=== PATIENT | female | born 1990 | race Caucasian/White ===

== ENCOUNTER 2017-11-04 11:01 | Observation (INO) | payer OTHER ==
[~2017-11-04] VITALS: Ht 170.2 cm; Wt 50.8 kg
[2017-11-04 12:26] LABS: BASOPHILS ABSOLUTE AUTO 0.04 K/mm3 (0.00-0.23); BASOPHILS PERCENT AUTO 0 % (0-2); EOSINOPHILS ABSOLUTE AUTO 0.06 K/mm3 (0.00-0.68); EOSINOPHILS PERCENT AUTO 0 % (0-6); Hematocrit 45.3 % (33.0-51.0); Hemoglobin 15.6 g/dL (11.5-16.0); IMMATURE GRAN ABSOLUTE AUTO 0.05 K/mm3 (0.00-0.10); IMMATURE GRAN PERCENT AUTO 0 % (0-1); LYMPHOCYTES ABSOLUTE AUTO 1.73 K/mm3 (0.84-5.20); LYMPHOCYTES PERCENT AUTO 11 % (21-46); MONOCYTES ABSOLUTE AUTO 0.89 K/mm3 (0.16-1.47); MONOCYTES PERCENT AUTO 6 % (4-13); Mean Corpuscular HGB 31.4 pg (26.0-34.0); Mean Corpuscular HGB Conc 34.4 g/dL (31.5-36.5); Mean Corpuscular Volume 91 fL (80-100); Mean Platelet Volume 9.1 fL (9.1-12.4); NEUTROPHILS ABSOLUTE AUTO 13.12 K/mm3 (1.96-9.15); NEUTROPHILS PERCENT AUTO 83 % (41-73); Platelet Count 277 K/mm3 (150-400); RDW Coefficient Variation 12.6 % (11.7-14.2); RDW Standard Deviation 42.1 fL (35.1-46.3); Red Blood Cell Count 4.97 M/mm3 (3.80-5.20); White Blood Cell Count 15.89 K/mm3 (4.00-11.30)
[2017-11-04 13:05] LABS: Alanine Aminotransfer (ALT/SGP 21 U/L (12-78); Albumin, Blood 3.7 g/dL (3.4-5.0); Albumin/Globulin Ratio 0.8 (0.8-1.8); Alk Phos 86 U/L (50-136); Anion Gap 9 mmol/L (6-16); Aspartate Aminotrans (AST/SGOT 17 U/L (12-37); Bilirubin, Total 0.8 mg/dL (0.1-1.0); Blood Urea Nitrogen 21 mg/dL (8-24); Bun/Creatinine Ratio 28.8 (12.0-20.0); CO2, Blood 24 mmol/L (21-32); Chloride, Blood 104 mmol/L (98-108); Creatinine, Blood 0.73 mg/dL (0.40-1.00); Ethanol (Alcohol), Blood, Med <3 mg/dL; Globulin, Blood 4.5 g/dL (2.2-4.0); Glomerular Filtration Rate >60 (60-); Glucose, Blood 160 mg/dL (70-99); Potassium, Blood 3.8 mmol/L (3.5-5.5); Salicylate <1.7 mg/dL (2.8-20.0); Sodium, Blood 137 mmol/L (136-145); Total Protein, Blood 8.2 g/dL (6.4-8.2)
[2017-11-04 13:09] LABS: Thyroid Stimulating Hormone 0.436 uIU/mL (0.360-4.800)
[2017-11-04 13:35] LABS: Acetaminophen, Random <2.0 ug/mL (10.0-30.0)
[2017-11-04 16:10] LABS: Source, Urine Clean Catch
[2017-11-04 16:34] LABS: Appearance, Urine Clear (Clear); Bilirubin, Urine Neg (Neg); Blood, Urine 4+ (Neg); Color, Urine Yellow (P-Yellow); Glucose Qualitative, Urine 2+ (Neg); Ketones, Urine 2+ (Neg); Leukocyte Esterase, Urine Neg (Neg); Nitrite, Urine Neg (Neg); Protein, Urine Neg (Neg); Urobilinogen, Urine 1+ (Normal)
[2017-11-04 17:03] LABS: U Amphetamine Screen DETECTED; U Barbituate Screen Not Detected; U Benzodiazapine Screen DETECTED; U Methamphetamine Screen DETECTED
[2017-11-04 17:04] LABS: U Buprenorphine Screen Not Detected; U Cannabinoids Screen Not Detected; U Cocaine Screen Not Detected; U Methadone Screen Not Detected; U Opiates Screen Not Detected; U Oxycodone Screen Not Detected; U Phencyclidine Screen Not Detected; U Propoxyphene Screen Not Detected
[2017-11-04 17:16] LABS: Bacteria Mod /hpf; Red Blood Cells, Urine 0-2 /hpf (0-2); Squamous Epithelial Cells Few /hpf (Few); White Blood Cells, Urine 0-2 /hpf (0-5)
== END 2017-11-06 11:20 | disposition home or self-care (01) ==
LOC: ER 11:01 → EOR 11:02
PROVIDERS: Emergency Medicine
DX: R45.851 Suicidal ideations (principal); F32.9 Major depressive disorder, single episode, unspecified; F15.10 Other stimulant abuse, uncomplicated
CPT/HCPCS: 80053; 81001; 81025; 84436; 84443; 85025; 99285; G0378; G0480; Q0163

== ENCOUNTER 2019-06-30 12:28 | Emergency (ER) | payer OTHER ==
[~2019-06-30] VITALS: Ht 170.2 cm; Wt 55.8 kg
[2019-06-30 12:46] LABS: BASOPHILS ABSOLUTE AUTO 0.06 K/mm3 (0.00-0.23); BASOPHILS PERCENT AUTO 0 % (0-2); EOSINOPHILS ABSOLUTE AUTO 0.02 K/mm3 (0.00-0.68); EOSINOPHILS PERCENT AUTO 0 % (0-6); Hematocrit 49.6 % (33.0-51.0); IMMATURE GRAN ABSOLUTE AUTO 0.04 K/mm3 (0.00-0.10); IMMATURE GRAN PERCENT AUTO 0 % (0-1); LYMPHOCYTES PERCENT AUTO 18 % (21-46); MONOCYTES ABSOLUTE AUTO 1.13 K/mm3 (0.16-1.47); MONOCYTES PERCENT AUTO 8 % (4-13); Mean Corpuscular HGB 31.4 pg (26.0-34.0); Mean Corpuscular HGB Conc 34.3 g/dL (31.5-36.5); Mean Corpuscular Volume 92 fL (80-100); Mean Platelet Volume 9.2 fL (9.1-12.4); NEUTROPHILS ABSOLUTE AUTO 10.43 K/mm3 (1.96-9.15); NEUTROPHILS PERCENT AUTO 74 % (41-73); Platelet Count 252 K/mm3 (150-400); RDW Coefficient Variation 11.9 % (11.7-14.2); RDW Standard Deviation 40.1 fL (35.1-46.3); Red Blood Cell Count 5.41 M/mm3 (3.80-5.20); White Blood Cell Count 14.18 K/mm3 (4.00-11.30)
[2019-06-30] MEDS ORDERED: LEVE500 PO (12:48)
[2019-06-30 13:06] LABS: Alanine Aminotransfer (ALT/SGP 20 U/L (12-78); Albumin, Blood 4.8 g/dL (3.4-5.0); Albumin/Globulin Ratio 1.3 (0.8-1.8); Alk Phos 75 U/L (50-136); Anion Gap 18 mmol/L (6-16); Aspartate Aminotrans (AST/SGOT 18 U/L (12-37); Bilirubin, Total 0.8 mg/dL (0.1-1.0); Blood Urea Nitrogen 7 mg/dL (8-24); Bun/Creatinine Ratio 9.2 (12.0-20.0); CO2, Blood 13 mmol/L (21-32); Calcium, Blood 9.2 mg/dL (8.5-10.1); Chloride, Blood 107 mmol/L (98-108); Creatinine, Blood 0.77 mg/dL (0.40-1.00); Globulin, Blood 3.8 g/dL (2.2-4.0); Glomerular Filtration Rate >60 (60-); Glucose, Blood 73 mg/dL (70-99); Potassium, Blood 3.6 mmol/L (3.5-5.5); Sodium, Blood 138 mmol/L (136-145); Total Protein, Blood 8.6 g/dL (6.4-8.2)
[2019-06-30 14:01] LABS: Source, Urine Clean Catch
[2019-06-30 14:04] LABS: Bilirubin, Urine Neg (Neg); Blood, Urine 2+ (Neg); Glucose Qualitative, Urine Neg (Neg); Ketones, Urine 3+ (Neg); Leukocyte Esterase, Urine Neg (Neg); Nitrite, Urine Neg (Neg); Protein, Urine Neg (Neg); Urobilinogen, Urine NORM (Normal)
[2019-06-30 14:05] LABS: Appearance, Urine Clear (Clear); Color, Urine Yellow (P-Yellow)
[2019-06-30 14:10] LABS: Bacteria Few /hpf; Squamous Epithelial Cells Rare /hpf (Few); White Blood Cells, Urine 0-2 /hpf (0-5)
== END 2019-06-30 14:57 | disposition home or self-care (01) ==
LOC: ER 12:28
PROVIDERS: Emergency Medicine
DX: R56.9 Unspecified convulsions (principal); F15.10 Other stimulant abuse, uncomplicated; F17.210 Nicotine dependence, cigarettes, uncomplicated; Z88.5 Allergy status to narcotic agent
CPT/HCPCS: 80053; 81001; 81025; 82947; 85025; 93005; 93010; 96360; 99284-25; J7120

== ENCOUNTER 2019-12-10 12:52 | Emergency (ER) | payer OTHER ==
[~2019-12-10] VITALS: Ht 170.2 cm; Wt 52.2 kg
[~2019-12-10 12:52] MED LIST: LEVE500 PO
[2019-12-10 13:50] LABS: BASOPHILS ABSOLUTE AUTO 0.07 K/mm3 (0.00-0.23); BASOPHILS PERCENT AUTO 1 % (0-2); EOSINOPHILS ABSOLUTE AUTO 0.02 K/mm3 (0.00-0.68); EOSINOPHILS PERCENT AUTO 0 % (0-6); Hematocrit 46.7 % (33.0-51.0); Hemoglobin 16.6 g/dL (11.5-16.0); IMMATURE GRAN ABSOLUTE AUTO 0.03 K/mm3 (0.00-0.10); IMMATURE GRAN PERCENT AUTO 0 % (0-1); LYMPHOCYTES ABSOLUTE AUTO 2.46 K/mm3 (0.84-5.20); LYMPHOCYTES PERCENT AUTO 24 % (21-46); MONOCYTES ABSOLUTE AUTO 0.87 K/mm3 (0.16-1.47); MONOCYTES PERCENT AUTO 8 % (4-13); Mean Corpuscular HGB 31.3 pg (26.0-34.0); Mean Corpuscular HGB Conc 35.5 g/dL (31.5-36.5); Mean Corpuscular Volume 88 fL (80-100); Mean Platelet Volume 9.3 fL (9.1-12.4); NEUTROPHILS ABSOLUTE AUTO 6.96 K/mm3 (1.96-9.15); NEUTROPHILS PERCENT AUTO 67 % (41-73); Platelet Count 275 K/mm3 (150-400); RDW Coefficient Variation 11.9 % (11.7-14.2); RDW Standard Deviation 38.1 fL (35.1-46.3); White Blood Cell Count 10.41 K/mm3 (4.00-11.30)
[2019-12-10 14:13] LABS: Alanine Aminotransfer (ALT/SGP 23 U/L (12-78); Albumin, Blood 4.3 g/dL (3.4-5.0); Albumin/Globulin Ratio 1.1 (0.8-1.8); Alk Phos 74 U/L (50-136); Anion Gap 10 mmol/L (6-16); Aspartate Aminotrans (AST/SGOT 15 U/L (12-37); Bilirubin, Total 0.7 mg/dL (0.1-1.0); Blood Urea Nitrogen 8 mg/dL (8-24); Bun/Creatinine Ratio 12.1 (12.0-20.0); CO2, Blood 18 mmol/L (21-32); Calcium, Blood 9.2 mg/dL (8.5-10.1); Chloride, Blood 109 mmol/L (98-108); Creatinine, Blood 0.66 mg/dL (0.40-1.00); Globulin, Blood 3.9 g/dL (2.2-4.0); Glomerular Filtration Rate >60 (60-); Glucose, Blood 83 mg/dL (70-99); Potassium, Blood 3.7 mmol/L (3.5-5.5); Sodium, Blood 137 mmol/L (136-145); Total Protein, Blood 8.2 g/dL (6.4-8.2)
[2019-12-10 14:20] LABS: Troponin I <0.015 ng/mL (0.000-0.040)
[2019-12-10] MEDS ORDERED: LEVE500 PO (15:28)
== END 2019-12-10 15:53 | disposition home or self-care (01) ==
LOC: ER 12:52
PROVIDERS: Emergency Medicine; Physician Assistant
DX: R56.9 Unspecified convulsions (principal); E86.0 Dehydration; Z91.14 Patient's other noncompliance with medication regimen; F17.200 Nicotine dependence, unspecified, uncomplicated; Z88.5 Allergy status to narcotic agent; Z88.8 Allergy status to other drugs, medicaments and biological substances; Z79.899 Other long term (current) drug therapy
CPT/HCPCS: 80053; 83690; 84443; 84484; 84703; 85025; 93005; 93010; 96361; 96365; 96375; 99284-25; J1953; J2405; J7030

== ENCOUNTER 2020-12-30 20:25 | Emergency (ER) | payer OTHER ==
[~2020-12-30] VITALS: Ht 170.2 cm; Wt 50.8 kg
[2020-12-30 20:51] LABS: BASOPHILS ABSOLUTE AUTO 0.07 K/mm3 (0.00-0.23); BASOPHILS PERCENT AUTO 1 % (0-2); EOSINOPHILS ABSOLUTE AUTO 0.32 K/mm3 (0.00-0.68); EOSINOPHILS PERCENT AUTO 3 % (0-6); Hematocrit 45.7 % (33.0-51.0); Hemoglobin 15.9 g/dL (11.5-16.0); IMMATURE GRAN ABSOLUTE AUTO 0.05 K/mm3 (0.00-0.10); IMMATURE GRAN PERCENT AUTO 0 % (0-1); LYMPHOCYTES ABSOLUTE AUTO 3.02 K/mm3 (0.84-5.20); LYMPHOCYTES PERCENT AUTO 27 % (21-46); MONOCYTES ABSOLUTE AUTO 0.88 K/mm3 (0.16-1.47); MONOCYTES PERCENT AUTO 8 % (4-13); Mean Corpuscular HGB 31.2 pg (26.0-34.0); Mean Corpuscular HGB Conc 34.8 g/dL (31.5-36.5); Mean Corpuscular Volume 90 fL (80-100); Mean Platelet Volume 8.8 fL (9.1-12.4); NEUTROPHILS ABSOLUTE AUTO 6.83 K/mm3 (1.96-9.15); NEUTROPHILS PERCENT AUTO 61 % (41-73); Platelet Count 263 K/mm3 (150-400); RDW Coefficient Variation 11.6 % (11.7-14.2); RDW Standard Deviation 38.5 fL (35.1-46.3); Red Blood Cell Count 5.09 M/mm3 (3.80-5.20); White Blood Cell Count 11.17 K/mm3 (4.00-11.30)
[2020-12-30 21:09] LABS: Alanine Aminotransfer (ALT/SGP 28 U/L (12-78); Albumin, Blood 3.4 g/dL (3.4-5.0); Albumin/Globulin Ratio 0.7 (0.8-1.8); Alk Phos 83 U/L (50-136); Anion Gap 5 mmol/L (6-16); Aspartate Aminotrans (AST/SGOT 15 U/L (12-37); Bilirubin, Total 0.4 mg/dL (0.1-1.0); Blood Urea Nitrogen 11 mg/dL (8-24); Bun/Creatinine Ratio 16.1 (12.0-20.0); CO2, Blood 27 mmol/L (21-32); Calcium, Blood 8.8 mg/dL (8.5-10.1); Chloride, Blood 106 mmol/L (98-108); Creatinine, Blood 0.68 mg/dL (0.40-1.00); Globulin, Blood 4.7 g/dL (2.2-4.0); Glomerular Filtration Rate >60 (60-); Glucose, Blood 93 mg/dL (70-99); Sodium, Blood 138 mmol/L (136-145); Total Protein, Blood 8.1 g/dL (6.4-8.2)
[2020-12-30 22:11] LABS: Source, Urine Clean Catch
[2020-12-30 22:13] LABS: Bilirubin, Urine Neg (Neg); Blood, Urine 3+ (Neg); Glucose Qualitative, Urine Neg (Neg); Ketones, Urine Neg (Neg); Leukocyte Esterase, Urine 3+ (Neg); Nitrite, Urine Neg (Neg); Protein, Urine 1+ (Neg); Urobilinogen, Urine NORM (Normal)
[2020-12-30 22:24] LABS: Appearance, Urine Clear (Clear); Bacteria Many /hpf; Color, Urine Yellow (P-Yellow); Squamous Epithelial Cells Few /hpf (Few); White Blood Cells, Urine 25-50 /hpf (0-5)
[2020-12-30] MEDS ORDERED: ONDA4ODT MM (23:56)
[2020-12-30] MEDS ORDERED: CEPH500 PO (23:56)
[2020-12-31] MEDS ORDERED: Pyridium200 MG PO
== END 2020-12-31 00:57 | disposition home or self-care (01) ==
LOC: ER 20:25
PROVIDERS: Emergency Medicine
DX: N12 Tubulo-interstitial nephritis, not specified as acute or chronic (principal); F17.210 Nicotine dependence, cigarettes, uncomplicated; Z87.19 Personal history of other diseases of the digestive system; Z88.5 Allergy status to narcotic agent; Z79.899 Other long term (current) drug therapy
CPT/HCPCS: 36415; 80053; 81001; 81025; 82272; 84703; 85025; 87086; 87147; 93005; 93010; 96374; 99284-25; A9270; J1885; J7120

== ENCOUNTER 2021-01-28 07:41 | Inpatient (IN) | payer OTHER ==
[~2021-01-28] VITALS: Ht 162.6 cm; Wt 63.1 kg
[~2021-01-28 07:41] MED LIST changes: +CEPH500 PO; +ONDA4ODT MM; +Pyridium200 MG PO
[2021-01-28 08:24] LABS: PCO2 Arterial 38.6 mmHg (35-45); PO2 Arterial 79.6 mmHg (80-100); pH Blood Arterial 7.37 (7.35-7.45)
[2021-01-28 08:35] LABS: BASOPHILS ABSOLUTE AUTO 0.08 K/mm3 (0.00-0.23); BASOPHILS PERCENT AUTO 1 % (0-2); EOSINOPHILS ABSOLUTE AUTO 0.54 K/mm3 (0.00-0.68); EOSINOPHILS PERCENT AUTO 4 % (0-6); Hematocrit 44.6 % (33.0-51.0); Hemoglobin 14.7 g/dL (11.5-16.0); IMMATURE GRAN ABSOLUTE AUTO 0.05 K/mm3 (0.00-0.10); IMMATURE GRAN PERCENT AUTO 0 % (0-1); LYMPHOCYTES ABSOLUTE AUTO 4.22 K/mm3 (0.84-5.20); LYMPHOCYTES PERCENT AUTO 31 % (21-46); MONOCYTES ABSOLUTE AUTO 1.06 K/mm3 (0.16-1.47); MONOCYTES PERCENT AUTO 8 % (4-13); Mean Corpuscular HGB 30.2 pg (26.0-34.0); Mean Corpuscular Volume 92 fL (80-100); Mean Platelet Volume 9.4 fL (9.1-12.4); NEUTROPHILS ABSOLUTE AUTO 7.72 K/mm3 (1.96-9.15); NEUTROPHILS PERCENT AUTO 56 % (41-73); Platelet Count 205 K/mm3 (150-400); RDW Coefficient Variation 12.1 % (11.7-14.2); RDW Standard Deviation 41.1 fL (35.1-46.3); Red Blood Cell Count 4.86 M/mm3 (3.80-5.20); White Blood Cell Count 13.67 K/mm3 (4.00-11.30)
[2021-01-28 08:38] LABS: Alanine Aminotransfer (ALT/SGP 44 U/L (12-78); Albumin, Blood 3.4 g/dL (3.4-5.0); Albumin/Globulin Ratio 0.8 (0.8-1.8); Alk Phos 81 U/L (50-136); Anion Gap 5 mmol/L (6-16); Aspartate Aminotrans (AST/SGOT 25 U/L (12-37); Bilirubin, Total 0.3 mg/dL (0.1-1.0); Blood Urea Nitrogen 7 mg/dL (8-24); Bun/Creatinine Ratio 10.5 (12.0-20.0); CO2, Blood 26 mmol/L (21-32); Chloride, Blood 107 mmol/L (98-108); Creatinine, Blood 0.67 mg/dL (0.40-1.00); Globulin, Blood 4.2 g/dL (2.2-4.0); Glomerular Filtration Rate >60 (60-); Glucose, Blood 115 mg/dL (70-99); Potassium, Blood 3.8 mmol/L (3.5-5.5); Sodium, Blood 138 mmol/L (136-145); Total Protein, Blood 7.6 g/dL (6.4-8.2); Troponin I <0.015 ng/mL (0.000-0.040)
[2021-01-28 12:02] LABS: Influenza A, PCR NEGATIVE (NEGATIVE); Influenza B, PCR NEGATIVE (NEGATIVE); Resp Syncytial Virus, PCR NEGATIVE (NEGATIVE); SARS-Cov-2 (COVID-19) PCR, MMC NEGATIVE (NEGATIVE)
[2021-01-28] MEDS ORDERED: LEVE500 PO (12:15)
[2021-01-28 17:06] LABS: U Amphetamine Screen DETECTED; U Barbituate Screen Not Detected; U Benzodiazapine Screen Not Detected; U Buprenorphine Screen Not Detected; U Cannabinoids Screen Not Detected; U Cocaine Screen Not Detected; U Methadone Screen Not Detected; U Methamphetamine Screen DETECTED; U Opiates Screen DETECTED; U Oxycodone Screen Not Detected; U Phencyclidine Screen Not Detected; U Propoxyphene Screen Not Detected
--- NOTE | 2021-01-28 17:41 | NUR ---
SHIFT SUMMARY PT ARRIVED TO PCU THIS AFTERNOON. PT CAME WITH BIPAP AND ON 4L O2 VIA NC. PT HAS USED THE BIPAP NEEDED; SHE WILL REQUEST TO USE THE BIPAP WHEN SHE FEELS SOB OR SATURATION DROPS. VS STABLE OTHER THAN O2 REQUIREMENT. PT ABLE TO SBA TO THE BEDSIDE COMMODE. THIS AFTERNOON AT APPROXIMATELY 1635 THE PT HAD A SEIZURE LASTING APPROXIMATELY 30 SECONDS AND WAS GIVEN 1MG ATIVAN. WAS NOTIFIED, AND ORDERED MULTIPLE ADDITIONAL LABS AND MEDICATIONS. PT HAS BEEN RESTING IN BED SINCE.
[2021-01-28 18:02] LABS: Albumin, Blood 3.3 g/dL (3.4-5.0); Anion Gap 8 mmol/L (6-16); Blood Urea Nitrogen 6 mg/dL (8-24); Bun/Creatinine Ratio 10.7 (12.0-20.0); CO2, Blood 19 mmol/L (21-32); Calcium, Blood 8.1 mg/dL (8.5-10.1); Chloride, Blood 112 mmol/L (98-108); Creatinine, Blood 0.56 mg/dL (0.40-1.00); Glomerular Filtration Rate >60 (60-); Glucose, Blood 153 mg/dL (70-99); Magnesium, Blood 2.2 mg/dL (1.6-2.4); Potassium, Blood 4.4 mmol/L (3.5-5.5); Prolactin 4.7 ng/mL; Sodium, Blood 139 mmol/L (136-145)
--- NOTE | 2021-01-28 19:25 | NUR ---
ASSUMED CARE RECEIVED REPORT FROM JAQUELINE GIANG; PT LETHARGIC, BUT AROUSES W/ VERBAL; SEIZURE PADS IN PLACE; VSS; O2 SATS>93 ON 4L NC; RT IN ROOM TO ASSIST W/ BIPAP; BELONGINGS AND CALL LIGHT WITHIN REACH; BED IN LOWEST POSITION; BED ALARM ON FOR SAFETY.
[2021-01-29 04:39] LABS: BASOPHILS ABSOLUTE AUTO 0.03 K/mm3 (0.00-0.23); BASOPHILS PERCENT AUTO 0 % (0-2); EOSINOPHILS PERCENT AUTO 0 % (0-6); Hematocrit 38.1 % (33.0-51.0); Hemoglobin 12.6 g/dL (11.5-16.0); IMMATURE GRAN ABSOLUTE AUTO 0.12 K/mm3 (0.00-0.10); IMMATURE GRAN PERCENT AUTO 1 % (0-1); LYMPHOCYTES ABSOLUTE AUTO 1.99 K/mm3 (0.84-5.20); LYMPHOCYTES PERCENT AUTO 8 % (21-46); MONOCYTES ABSOLUTE AUTO 0.49 K/mm3 (0.16-1.47); MONOCYTES PERCENT AUTO 2 % (4-13); Mean Corpuscular HGB 30.1 pg (26.0-34.0); Mean Corpuscular HGB Conc 33.1 g/dL (31.5-36.5); Mean Corpuscular Volume 91 fL (80-100); Mean Platelet Volume 9.2 fL (9.1-12.4); NEUTROPHILS ABSOLUTE AUTO 21.28 K/mm3 (1.96-9.15); NEUTROPHILS PERCENT AUTO 89 % (41-73); Platelet Count 202 K/mm3 (150-400); RDW Coefficient Variation 12.2 % (11.7-14.2); RDW Standard Deviation 40.6 fL (35.1-46.3); Red Blood Cell Count 4.19 M/mm3 (3.80-5.20); White Blood Cell Count 23.91 K/mm3 (4.00-11.30)
[2021-01-29 05:01] LABS: Anion Gap 6 mmol/L (6-16); Blood Urea Nitrogen 11 mg/dL (8-24); Bun/Creatinine Ratio 18.7 (12.0-20.0); CO2, Blood 23 mmol/L (21-32); Calcium, Blood 7.9 mg/dL (8.5-10.1); Chloride, Blood 112 mmol/L (98-108); Creatinine, Blood 0.59 mg/dL (0.40-1.00); Glomerular Filtration Rate >60 (60-); Glucose, Blood 150 mg/dL (70-99); Potassium, Blood 3.8 mmol/L (3.5-5.5); Sodium, Blood 141 mmol/L (136-145)
--- NOTE | 2021-01-29 06:25 | NUR ---
SHIFT SUMMARY PT GOES BETWEEN ALERT AND LETHARGIC SPONTANEOUSLY; IMPULSIVE OUT OF BED AT TIMES, DOES NOT CALL FOR HELP W/ BATHROOM; VSS; DENIES CHEST PAIN; O2 SATS >93 ON 4L NC; WAS ABLE TO WEAR BIPAP >3HRS THIS SHIFT; NS GTT @ 125 CONTINUE; EDUCATION PROVIDED FOR SAFETY / UNIT PROTOCOL; SBA FOR BRP; CALL LIGHT IN REACH; BED IN LOWEST POSITION; WILL CONTINUE TO MONITOR CLOSELY UNTIL HAND OFF TO DAY SHIFT RN.
--- NOTE | 2021-01-29 17:23 | NUR ---
SHIFT SUMMARY PT HAS BEEN SLEEPING MOST OF THE DAY. PT REPORTS FEELING BETTER THIS AFTERNOON AND WAS ABLE TO HAVE A SHOWER. PT REMAINS ON O2, 5L AND BIPAP PRN. PT HAS COOPERATED IN HER CARE TODAY. VS STABLE AND PT REMAINS A SBA TO THE BATHROOM SHE IS STILL UNSTEADY ON HER FEET AND REQUIRES THE BED ALARM. PT STATED "IS THERE A WAY TO HAVE MORE SUBOXONE THIS EVENING? I'M STARTING TO FEEL THE WITHDRAWAL" SINCE THE PT HAD NOT PREVIOUSLY BEEN TAKING SUBOXONE SHE WAS OFFERED BUSPAR INSTEAD AND THE SUBOXONE WOULD CONTINUE IN THE MORNING. PT EXPRESSED CONCERN ABOUT THE BUSPAR GIVING HER SEIZURES; THE ORDER WAS DC'D AND ATIVAN WAS ORDERED IN PLACE TO HELP WITH ANXIETY AND DISCOMFORT DUE TO WITHDRAWAL WELL TO HELP WITH SEIZURES; PT AGREED TO THIS PLAN VERBALLY. PT IS RESTING IN BED HAVING DINNER AND WATCHING TV AT THIS TIME
[2021-01-30 04:21] LABS: BASOPHILS ABSOLUTE AUTO 0.03 K/mm3 (0.00-0.23); BASOPHILS PERCENT AUTO 0 % (0-2); EOSINOPHILS PERCENT AUTO 0 % (0-6); Hemoglobin 11.9 g/dL (11.5-16.0); IMMATURE GRAN ABSOLUTE AUTO 0.42 K/mm3 (0.00-0.10); IMMATURE GRAN PERCENT AUTO 2 % (0-1); LYMPHOCYTES ABSOLUTE AUTO 1.45 K/mm3 (0.84-5.20); LYMPHOCYTES PERCENT AUTO 6 % (21-46); MONOCYTES ABSOLUTE AUTO 0.72 K/mm3 (0.16-1.47); MONOCYTES PERCENT AUTO 3 % (4-13); Mean Corpuscular HGB 30.7 pg (26.0-34.0); Mean Corpuscular HGB Conc 33.1 g/dL (31.5-36.5); Mean Corpuscular Volume 93 fL (80-100); Mean Platelet Volume 9.7 fL (9.1-12.4); NEUTROPHILS PERCENT AUTO 90 % (41-73); Platelet Count 213 K/mm3 (150-400); RDW Coefficient Variation 12.5 % (11.7-14.2); RDW Standard Deviation 42.5 fL (35.1-46.3); Red Blood Cell Count 3.88 M/mm3 (3.80-5.20); White Blood Cell Count 26.22 K/mm3 (4.00-11.30)
[2021-01-30 04:34] LABS: Alanine Aminotransfer (ALT/SGP 44 U/L (12-78); Albumin, Blood 2.7 g/dL (3.4-5.0); Albumin/Globulin Ratio 0.8 (0.8-1.8); Alk Phos 58 U/L (50-136); Anion Gap 5 mmol/L (6-16); Aspartate Aminotrans (AST/SGOT 24 U/L (12-37); Bilirubin, Total 0.5 mg/dL (0.1-1.0); Blood Urea Nitrogen 14 mg/dL (8-24); Bun/Creatinine Ratio 25.8 (12.0-20.0); CO2, Blood 24 mmol/L (21-32); Calcium, Blood 7.8 mg/dL (8.5-10.1); Chloride, Blood 112 mmol/L (98-108); Creatinine, Blood 0.54 mg/dL (0.40-1.00); Globulin, Blood 3.4 g/dL (2.2-4.0); Glomerular Filtration Rate >60 (60-); Glucose, Blood 153 mg/dL (70-99); Phosphorus, Blood 2.3 mg/dL (2.5-4.9); Sodium, Blood 141 mmol/L (136-145); Total Protein, Blood 6.1 g/dL (6.4-8.2)
--- NOTE | 2021-01-30 06:26 | NUR ---
SHIFT SUMMARY PT A&O X 4; WITHDRAWN AND MAJORITY OF SHIFT; DENIES CHEST PAIN; VSS; SR TO SINUS TACH NOTED ON TELE; O2 SATS >93 ON 4L NC; BIPAP IN PLACE A FEW HOURS AT A TIME; SBA FOR BRP W/ NO GAIT DISTURBANCES NOTED; NO ATIVAN NEEDED THIS SHIFT; PO FLUIDS AND SNACKS ENCOURAGED; NS GTT @ 125; CALL LIGHT IN REACH; BED IN LOWEST POSITION; WILL CONTINUE TO MONITOR CLOSELY UNTIL HAND OFF TO DAY SHIFT RN.
--- NOTE | 2021-01-30 16:15 | NUR ---
SHIFT SUMMARY: PT CONTINUES A&OX4, VSS, SR TO SIN TACH ON MONITOR, MAINTAINING O2 SATS >93% RECEVING O2 VIA NC AT 3 L/MIN OR BIPAP. THIS MORNING PT C/O GENERALLY NOT FEELING WELL, REQUESTS AND RECEIVES HER SCHEDULED DOSE OF SUBOXONE, STATES IMPROVEMENT OF SYMPTOMS. PT DOES REQUIRE ONE DOSE OF ATIVAN LATER IN THE DAY, PT WAS MILDLY DIAPHORETIC, TREMULOUS, AND C/O INTENSE HEADACHE AND SOME ANXIETY. PT TOLERATES WELL. PT ADMISSION STATUS CHANGED TO MED NO TELE. PT TRANSFERED TO SURGICAL DEPT, REPORT GIVEN TO JAQUELINE DELACRUZ.
--- NOTE | 2021-01-30 18:30 | NUR ---
pt arrived to room 231 from pcu 5 via wc oriented to room placed on nc at 3 l bed alsrm placed pt wanting to laydown req the light be turned off and be covered up
--- NOTE | 2021-01-30 20:15 | NUR ---
WHEN ASKED IF SHE WAS EXPERIENCING ANY WITHDRAWL SYMPTOMS, SHE STATED THAT SHE "JUST FEELS LIKE CRAP" DESCRIBING GENERALIZED BODY ACHES, MALAISE, AND MILD UNEASY STOMACH WELL "RESTLESS LEGS". SHE DENIES ANY HALLUCINATIONS, SHAKING/TREMOR, NAUSEA/VOMITING, OR VISUAL/AUDITORY DISTURBANCES. SHE WAS REQUESTED TO MAKE STAFF AWARE IF SHE EXPERIENCES ANY OF THESE SYMPTOMS.
[2021-01-31 04:46] LABS: Base Excess Venous 3.5 mmol/L; Bicarbonate Venous 27.1 mmol/L (24.0-30.0); PCO2 Venous 44 mmHg (38-42); PO2 Venous 136 mmHg (38-42); pH Blood Venous 7.41 (7.34-7.37)
[2021-01-31 04:55] LABS: BASOPHILS ABSOLUTE AUTO 0.05 K/mm3 (0.00-0.23); BASOPHILS PERCENT AUTO 0 % (0-2); EOSINOPHILS PERCENT AUTO 0 % (0-6); Hematocrit 37.7 % (33.0-51.0); Hemoglobin 12.5 g/dL (11.5-16.0); IMMATURE GRAN ABSOLUTE AUTO 0.44 K/mm3 (0.00-0.10); IMMATURE GRAN PERCENT AUTO 2 % (0-1); LYMPHOCYTES ABSOLUTE AUTO 1.35 K/mm3 (0.84-5.20); LYMPHOCYTES PERCENT AUTO 7 % (21-46); MONOCYTES ABSOLUTE AUTO 0.61 K/mm3 (0.16-1.47); MONOCYTES PERCENT AUTO 3 % (4-13); Mean Corpuscular HGB 30.4 pg (26.0-34.0); Mean Corpuscular HGB Conc 33.2 g/dL (31.5-36.5); Mean Corpuscular Volume 92 fL (80-100); Mean Platelet Volume 9.3 fL (9.1-12.4); NEUTROPHILS ABSOLUTE AUTO 17.88 K/mm3 (1.96-9.15); NEUTROPHILS PERCENT AUTO 88 % (41-73); Platelet Count 212 K/mm3 (150-400); RDW Coefficient Variation 12.2 % (11.7-14.2); RDW Standard Deviation 41.2 fL (35.1-46.3); Red Blood Cell Count 4.11 M/mm3 (3.80-5.20); White Blood Cell Count 20.33 K/mm3 (4.00-11.30)
[2021-01-31 05:30] LABS: Alanine Aminotransfer (ALT/SGP 58 U/L (12-78); Albumin, Blood 2.7 g/dL (3.4-5.0); Albumin/Globulin Ratio 0.8 (0.8-1.8); Alk Phos 66 U/L (50-136); Anion Gap 3 mmol/L (6-16); Aspartate Aminotrans (AST/SGOT 21 U/L (12-37); Bilirubin, Total 0.3 mg/dL (0.1-1.0); Blood Urea Nitrogen 12 mg/dL (8-24); Bun/Creatinine Ratio 20.7 (12.0-20.0); CO2, Blood 29 mmol/L (21-32); Calcium, Blood 7.8 mg/dL (8.5-10.1); Chloride, Blood 106 mmol/L (98-108); Creatinine, Blood 0.58 mg/dL (0.40-1.00); Globulin, Blood 3.5 g/dL (2.2-4.0); Glomerular Filtration Rate >60 (60-); Glucose, Blood 136 mg/dL (70-99); Sodium, Blood 138 mmol/L (136-145); Total Protein, Blood 6.2 g/dL (6.4-8.2)
--- NOTE | 2021-01-31 05:31 | NUR ---
SHIFT SUMMARY: JENI IS A&OX4. VSS, NO ACUTE EVENTS OVERNIGHT, O2 SATS MAINTAINING ON 3 L VIA NC. CONTINUOUS PULSE OX IN PLACE. SHE IS INDEPENDENT TO THE BATHROOM. SHE HAS REQUESTED THE ATIVAN FOR WITHDRAWAL SYMPTOMS TWICE THIS SHIFT. SHE IS TOLERATING PO INTAKE WELL, MOVES HERSELF IN BED EASILY. IV TO R AC PATENT. SHE USES THE CALL LIGHT APPROPRIATELY. SHE IS LYING IN BED WITH THE CALL LIGHT IN REACH. WILL REPORT TO DAY SHIFT RN.
--- NOTE | 2021-01-31 16:10 | NUR ---
SHIFT SUMMARY AA0X4. PT STILL SOB WITH AUDIBLE WHEEZING AND COARSENESS UPON ENTERING ROOM. PT REQUESTING BREATHING TREATMENTS PER EMAR. PT REPORTS COUGHING UP SMALL AMOUNT OF PHLEGM. PRODCTIVE AND FREQUENT COUGH. PT IND/ SBY IN ROOM TO BATHROOM. VOIDING WELL. OXYGEN VIA NC IN AT ALL TIMES SATS ABOVE 92%. TOLERATING PO, DENIES NAUSEA OR PAIN DURING SHIFT. WILL CONTINUE WITH BREATHING TREATMENTS REQUESTED.
--- NOTE | 2021-01-31 16:16 | NUR ---
[facility] IN ROOM DELIVERING NEBULIZER.
--- NOTE | 2021-02-01 04:05 | NUR ---
SHIFT SUMMARY PT IS A/O X4, IND IN ROOM. USING 2L O2 NC OVERNIGHT WITH O2 SATS AROUND 95%. PT DECLINED BIPAP THIS SHIFT. PT RECEIVING NEB TREATMENTS PER RT. CONT BIOX ON OVERNIGHT. PT HAS BEEN RESTING MOST OF THE SHIFT. NO ACUTE CHANGES OVERNIGHT.
--- NOTE | 2021-02-01 16:40 | NUR ---
SHIFT SUMMARY AAOX4, VSS. PT IND IN ROOM. TAKES SELF TO BATHROOM. EDUCATED PT ON KEEPING OXYGEN ON WHILE IN ROOM OR MOVING, SHE WILL TAKE OFF WITH AMBULATION. DENIES SOB WHILE UP AND SATS REMAIN >92% WHILE THIS RN OBSERVED. CURRENTLY ON 1L 0XYGEN VIA NASAL CANULA, PER RESPIRATORY THERAPIST. SATS REMAIN 93% OR HIGHER. PT FREQUENTLY COUGHING, REPORTS SOME SPUTUM CLEARED. REPORTS USING FLUTTER VALVE THERAPY BUT DECLINED TO USE WHILE EDUCATION WAS BEING PROVIDED. PT DENIES PAIN. TOLERATING PO WELL.
--- NOTE | 2021-02-02 03:22 | NUR ---
SHIFT SUMMARY PT IS A/O X4, IND IN ROOM. TOLERATING PO INTAKE AND VOIDING. PT USING BIPAP OVERNIGHT OR 1-2L O2 NC WHILE AWAKE. BIOX IN PLACE, O2 HAS BEEN BETWEEN 92-95%. NEB TREATMENTS PER RT. MED WITH ATIVAN PO PRN FOR ANXIETY. PLAN TO DC HOME SOON. PT IS RESTING AT THIS TIME, CALL LIGHT IN REACH.
[2021-02-02] MEDS ORDERED: BUDE.25 INH (12:40)
[2021-02-02] MEDS ORDERED: IPRAT-ALBUT 0.5-3 ML INH (12:41)
[2021-02-02] MEDS ORDERED: PRED20 PO (12:42)
== END 2021-02-02 13:00 | disposition home or self-care (01) | DRG 193 ==
LOC: ER 07:41 → PCU 12:26 → ERHOLD 12:26 → PCU 13:17 → SURS 01-30 18:30
PROVIDERS: Emergency Medicine; Internal Medicine; Nurse Practitioner Acute Care; ADMIT Internal Medicine
PROC: 5A09357 Assistance with Respiratory Ventilation, Less than 24 Consecutive Hours, Continuous Positive Airway Pressure (ICD-10-PCS; principal; 2021-01-28)
DX: J18.9 Pneumonia, unspecified organism (principal); J96.01 Acute respiratory failure with hypoxia; J44.1 Chronic obstructive pulmonary disease with (acute) exacerbation; J45.901 Unspecified asthma with (acute) exacerbation; J44.0 Chronic obstructive pulmonary disease with (acute) lower respiratory infection; E87.2 Acidosis; F11.13 Opioid abuse with withdrawal; Z20.822 Contact with and (suspected) exposure to COVID-19; E87.8 Other disorders of electrolyte and fluid balance, not elsewhere classified; G40.409 Other generalized epilepsy and epileptic syndromes, not intractable, without status epilepticus; F17.210 Nicotine dependence, cigarettes, uncomplicated; Z71.6 Tobacco abuse counseling; Z88.5 Allergy status to narcotic agent; Z79.899 Other long term (current) drug therapy; Z91.14 Patient's other noncompliance with medication regimen; Z71.51 Drug abuse counseling and surveillance of drug abuser
CPT/HCPCS: 0241U; 36415; 36600; 71045; 71260; 80048; 80053; 80069; 80177; 82330; 82803; 83605; 83735; 83880; 84100; 84145; 84146; 84484; 85025; 87040; 87070; 87205; 93005; 93010; 94640; 94644; 94660; 94667; 94668; 94760; 94762; 96365-59; 96367-59; 96368; 99285-25; A9270; J0456; J0610; J0696; J1650; J2060; J2930; J3475; J7030; J7050; J7512; Q9967

== ENCOUNTER 2021-03-13 13:23 | Emergency (ER) | payer OTHER ==
[~2021-03-13] VITALS: Ht 170.2 cm; Wt 56.7 kg
[~2021-03-13 13:23] MED LIST changes: +BUDE.25 INH; +IPRAT-ALBUT 0.5-3 ML INH; +PRED20 PO
[2021-03-13 14:00] LABS: BASOPHILS ABSOLUTE AUTO 0.07 K/mm3 (0.00-0.23); BASOPHILS PERCENT AUTO 0 % (0-2); EOSINOPHILS ABSOLUTE AUTO 0.09 K/mm3 (0.00-0.68); EOSINOPHILS PERCENT AUTO 1 % (0-6); Hematocrit 47.6 % (33.0-51.0); Hemoglobin 16.5 g/dL (11.5-16.0); IMMATURE GRAN ABSOLUTE AUTO 0.06 K/mm3 (0.00-0.10); IMMATURE GRAN PERCENT AUTO 0 % (0-1); LYMPHOCYTES ABSOLUTE AUTO 2.33 K/mm3 (0.84-5.20); LYMPHOCYTES PERCENT AUTO 14 % (21-46); MONOCYTES ABSOLUTE AUTO 0.71 K/mm3 (0.16-1.47); MONOCYTES PERCENT AUTO 4 % (4-13); Mean Corpuscular HGB 30.1 pg (26.0-34.0); Mean Corpuscular HGB Conc 34.7 g/dL (31.5-36.5); Mean Corpuscular Volume 87 fL (80-100); Mean Platelet Volume 9.2 fL (9.1-12.4); NEUTROPHILS ABSOLUTE AUTO 13.45 K/mm3 (1.96-9.15); NEUTROPHILS PERCENT AUTO 81 % (41-73); Platelet Count 294 K/mm3 (150-400); RDW Coefficient Variation 11.9 % (11.7-14.2); RDW Standard Deviation 37.7 fL (35.1-46.3); Red Blood Cell Count 5.48 M/mm3 (3.80-5.20); White Blood Cell Count 16.71 K/mm3 (4.00-11.30)
[2021-03-13 14:41] LABS: Alanine Aminotransfer (ALT/SGP 26 U/L (12-78); Albumin, Blood 4.1 g/dL (3.4-5.0); Alk Phos 80 U/L (50-136); Anion Gap 7 mmol/L (6-16); Aspartate Aminotrans (AST/SGOT 13 U/L (12-37); Bilirubin, Total 0.5 mg/dL (0.1-1.0); Blood Urea Nitrogen 6 mg/dL (8-24); Bun/Creatinine Ratio 8.7 (12.0-20.0); CO2, Blood 22 mmol/L (21-32); Calcium, Blood 9.2 mg/dL (8.5-10.1); Chloride, Blood 108 mmol/L (98-108); Creatinine, Blood 0.69 mg/dL (0.40-1.00); Globulin, Blood 4.3 g/dL (2.2-4.0); Glomerular Filtration Rate >60 (60-); Glucose, Blood 99 mg/dL (70-99); Potassium, Blood 3.8 mmol/L (3.5-5.5); Sodium, Blood 137 mmol/L (136-145); Total Protein, Blood 8.4 g/dL (6.4-8.2)
== END 2021-03-13 15:30 | disposition home or self-care (01) ==
LOC: ER 13:23
PROVIDERS: Emergency Medicine
DX: G40.909 Epilepsy, unspecified, not intractable, without status epilepticus (principal); J44.9 Chronic obstructive pulmonary disease, unspecified; F17.210 Nicotine dependence, cigarettes, uncomplicated; Z79.899 Other long term (current) drug therapy
CPT/HCPCS: 80053; 81025; 85025; 93005; 93010; 96374; 99284-25; J1953; J7030

== ENCOUNTER 2021-05-22 18:16 | Emergency (ER) | payer OTHER ==
[~2021-05-22] VITALS: Ht 170.2 cm; Wt 54.4 kg
[2021-05-22 19:05] LABS: BASOPHILS ABSOLUTE AUTO 0.08 K/mm3 (0.00-0.23); BASOPHILS PERCENT AUTO 1 % (0-2); EOSINOPHILS ABSOLUTE AUTO 0.18 K/mm3 (0.00-0.68); EOSINOPHILS PERCENT AUTO 1 % (0-6); Hematocrit 45.4 % (33.0-51.0); Hemoglobin 15.7 g/dL (11.5-16.0); IMMATURE GRAN ABSOLUTE AUTO 0.05 K/mm3 (0.00-0.10); IMMATURE GRAN PERCENT AUTO 0 % (0-1); LYMPHOCYTES ABSOLUTE AUTO 3.83 K/mm3 (0.84-5.20); LYMPHOCYTES PERCENT AUTO 29 % (21-46); MONOCYTES ABSOLUTE AUTO 0.76 K/mm3 (0.16-1.47); MONOCYTES PERCENT AUTO 6 % (4-13); Mean Corpuscular HGB 29.7 pg (26.0-34.0); Mean Corpuscular HGB Conc 34.6 g/dL (31.5-36.5); Mean Corpuscular Volume 86 fL (80-100); Mean Platelet Volume 9.6 fL (9.1-12.4); NEUTROPHILS ABSOLUTE AUTO 8.55 K/mm3 (1.96-9.15); NEUTROPHILS PERCENT AUTO 64 % (41-73); Platelet Count 281 K/mm3 (150-400); RDW Coefficient Variation 12.2 % (11.7-14.2); Red Blood Cell Count 5.28 M/mm3 (3.80-5.20); White Blood Cell Count 13.45 K/mm3 (4.00-11.30)
[2021-05-22 19:27] LABS: Alanine Aminotransfer (ALT/SGP 28 U/L (12-78); Albumin, Blood 4.1 g/dL (3.4-5.0); Alk Phos 79 U/L (50-136); Anion Gap 5 mmol/L (6-16); Aspartate Aminotrans (AST/SGOT 31 U/L (12-37); Blood Urea Nitrogen 11 mg/dL (8-24); Bun/Creatinine Ratio 15.2 (12.0-20.0); CO2, Blood 24 mmol/L (21-32); Chloride, Blood 107 mmol/L (98-108); Creatinine, Blood 0.72 mg/dL (0.40-1.00); Globulin, Blood 4.3 g/dL (2.2-4.0); Glomerular Filtration Rate >60 (60-); Glucose, Blood 82 mg/dL (70-99); Magnesium, Blood 2.4 mg/dL (1.6-2.4); Potassium, Blood 4.5 mmol/L (3.5-5.5); Sodium, Blood 136 mmol/L (136-145); Total Protein, Blood 8.4 g/dL (6.4-8.2)
== END 2021-05-22 21:57 | disposition left against medical advice (07) ==
LOC: ER 18:16
PROVIDERS: Physician Assistant
DX: R68.84 Jaw pain (principal); Z53.21 Procedure and treatment not carried out due to patient leaving prior to being seen by health care provider
CPT/HCPCS: 36415; 80053; 80177; 83735; 85025; 93005; 93010; 99283-25

== ENCOUNTER → 2022-01-20 | Outpatient (CLI) | payer OTHER ==
[2022-01-22 08:11] LABS: CHLAMYDIA BY NAA Negative (Negative); GONOCOCCUS BY NAA Negative (Negative); TRICH VAG BY NAA Positive (Negative)
== END | disposition home or self-care (01) ==
LOC: LAB SHORT 11:00 → LAB 11:00
PROVIDERS: Physician Assistant Medical
DX: N89.8 Other specified noninflammatory disorders of vagina (principal)
CPT/HCPCS: 87070; 87147; 87205; 87491; 87591; 87661

== ENCOUNTER 2022-12-02 09:26 | Emergency (ER) | payer OTHER ==
[~2022-12-02] VITALS: Ht 170.2 cm; Wt 56.7 kg
[2022-12-02 10:11] LABS: BASOPHILS ABSOLUTE AUTO 0.04 K/mm3 (0.00-0.23); BASOPHILS PERCENT AUTO 0 % (0-2); EOSINOPHILS ABSOLUTE AUTO 0.09 K/mm3 (0.00-0.68); EOSINOPHILS PERCENT AUTO 1 % (0-6); Hematocrit 48.8 % (33.0-51.0); Hemoglobin 16.7 g/dL (11.5-16.0); IMMATURE GRAN ABSOLUTE AUTO 0.02 K/mm3 (0.00-0.10); IMMATURE GRAN PERCENT AUTO 0 % (0-1); LYMPHOCYTES ABSOLUTE AUTO 3.64 K/mm3 (0.84-5.20); LYMPHOCYTES PERCENT AUTO 35 % (21-46); MONOCYTES ABSOLUTE AUTO 0.58 K/mm3 (0.16-1.47); MONOCYTES PERCENT AUTO 6 % (4-13); Mean Corpuscular HGB 29.6 pg (26.0-34.0); Mean Corpuscular HGB Conc 34.2 g/dL (31.5-36.5); Mean Corpuscular Volume 87 fL (80-100); Mean Platelet Volume 8.9 fL (9.1-12.4); NEUTROPHILS ABSOLUTE AUTO 6.15 K/mm3 (1.96-9.15); NEUTROPHILS PERCENT AUTO 58 % (41-73); Platelet Count 304 K/mm3 (150-400); RDW Standard Deviation 38.3 fL (35.1-46.3); Red Blood Cell Count 5.64 M/mm3 (3.80-5.20); White Blood Cell Count 10.52 K/mm3 (4.00-11.30)
[2022-12-02 10:29] LABS: Albumin, Blood 3.9 g/dL (3.4-5.0); Albumin/Globulin Ratio 0.9 (0.8-1.8); Bilirubin, Total 0.7 mg/dL (0.1-1.0); Calcium, Blood 9.5 mg/dL (8.5-10.1); Creatinine, Blood 0.71 mg/dL (0.40-1.00); Globulin, Blood 4.4 g/dL (2.2-4.0); Potassium, Blood 4.1 mmol/L (3.5-5.5); Total Protein, Blood 8.3 g/dL (6.4-8.2)
[2022-12-02 11:00] LABS: Source, Urine Clean Catch
[2022-12-02 11:06] LABS: Appearance, Urine Hazy (Clear); Blood, Urine 2+ (Neg); Color, Urine Yellow (P-Yellow); Glucose Qualitative, Urine Neg (Neg); Ketones, Urine 2+ (Neg); Leukocyte Esterase, Urine 1+ (Neg); Nitrite, Urine Neg (Neg); Protein, Urine 3+ (Neg); Specific Gravity, Urine 1.025 (1.003-1.022); Urobilinogen, Urine 1+ (Normal)
[2022-12-02 11:12] LABS: Bilirubin, Urine 1+ (Neg)
[2022-12-02 11:13] LABS: Bacteria Few /hpf; Squamous Epithelial Cells Few /hpf (Few)
[2022-12-02 11:14] LABS: Hyaline Casts 0-2 /lpf (0-2); Mucus Mod (0-Heavy)
[2022-12-02] MEDS ORDERED: ONDA4ODT MM (12:38)
== END 2022-12-02 13:10 | disposition home or self-care (01) ==
LOC: ER 09:26
PROVIDERS: Student in an Organized Health Care Education/Training Program
DX: R25.2 Cramp and spasm (principal); F17.210 Nicotine dependence, cigarettes, uncomplicated
CPT/HCPCS: 36415; 76830; 76856; 80053; 81001; 81025; 85025; 93005; 93010; 96361; 96374; 96375; 99284-25; J1885; J2405; J7030

== ENCOUNTER 2023-08-11 00:13 | Emergency (ER) | payer OTHER ==
[~2023-08-11] VITALS: Ht 167.6 cm; Wt 59.0 kg
[2023-08-11 00:30] VITALS: BP 151/95
[2023-08-11] MEDS ORDERED: Aspir 8181 MG PO (02:09)
[2023-08-11] MEDS ORDERED: ACET500 PO (02:09)
== END 2023-08-11 02:19 | disposition home or self-care (01) ==
LOC: ER 00:13
DX: I82.812 Embolism and thrombosis of superficial veins of left lower extremity (principal); R11.2 Nausea with vomiting, unspecified; T50.905A Adverse effect of unspecified drugs, medicaments and biological substances, initial encounter; F17.210 Nicotine dependence, cigarettes, uncomplicated
CPT/HCPCS: 81025; 93005; 93010; 93971; 99284-25; A9270

== ENCOUNTER 2025-03-25 23:53 | Observation (INO) | payer OTHER ==
[~2025-03-25] VITALS: Ht 170.2 cm; Wt 65.8 kg
[~2025-03-25 23:53] MED LIST changes: +ACET500 PO; +Aspir 8181 MG PO
[2025-03-26 00:40] LABS: BASOPHILS ABSOLUTE AUTO 0.04 K/mm3 (0.00-0.23); BASOPHILS PERCENT AUTO 0 % (0-2); EOSINOPHILS ABSOLUTE AUTO 0.11 K/mm3 (0.00-0.68); EOSINOPHILS PERCENT AUTO 1 % (0-6); Hematocrit 45.1 % (33.0-51.0); Hemoglobin 15.2 g/dL (11.5-16.0); IMMATURE GRAN ABSOLUTE AUTO 0.02 K/mm3 (0.00-0.10); IMMATURE GRAN PERCENT AUTO 0 % (0-1); LYMPHOCYTES PERCENT AUTO 24 % (21-46); MONOCYTES ABSOLUTE AUTO 0.71 K/mm3 (0.16-1.47); MONOCYTES PERCENT AUTO 7 % (4-13); Mean Corpuscular HGB Conc 33.7 g/dL (31.5-36.5); Mean Corpuscular Volume 86 fL (80-100); Mean Platelet Volume 8.8 fL (9.1-12.4); NEUTROPHILS ABSOLUTE AUTO 6.61 K/mm3 (1.96-9.15); NEUTROPHILS PERCENT AUTO 67 % (41-73); Platelet Count 247 K/mm3 (150-400); RDW Coefficient Variation 11.8 % (11.7-14.2); RDW Standard Deviation 37.1 fL (35.1-46.3); Red Blood Cell Count 5.25 M/mm3 (3.80-5.20); White Blood Cell Count 9.89 K/mm3 (4.00-11.30)
[2025-03-26 00:59] LABS: Ethanol (Alcohol), Blood, Med <3 mg/dL; Salicylate <1.7 mg/dL (2.8-20.0)
[2025-03-26 01:04] LABS: Acetaminophen, Random <2.0 ug/mL (10.0-30.0); Alanine Aminotransfer (ALT/SGP 22 U/L (12-78); Alk Phos 86 U/L (50-136); Anion Gap 11 mmol/L (3-11); Aspartate Aminotrans (AST/SGOT 16 U/L (12-37); Bilirubin, Total 0.4 mg/dL (0.1-1.0); Blood Urea Nitrogen 8 mg/dL (8-24); Bun/Creatinine Ratio 11.6 (12.0-20.0); CO2, Blood 23 mmol/L (21-32); Chloride, Blood 107 mmol/L (98-108); Creatinine, Blood 0.69 mg/dL (0.40-1.00); Globulin, Blood 4.1 g/dL (2.2-4.0); Glomerular Filtration Rate 117 (60-); Glucose, Blood 100 mg/dL (70-99); Potassium, Blood 3.5 mmol/L (3.5-5.5); Sodium, Blood 137 mmol/L (136-145); Total Protein, Blood 8.1 g/dL (6.4-8.2)
[2025-03-26] MEDS ORDERED: Acetaminophen 500 MG Tab PO ONE (03:00)
[2025-03-26] MEDS ORDERED: buprenorphine HCL 2 MG TAB.SUBL SL ONE ×2 (10:00→11:40)
[2025-03-26] MEDS ORDERED: Ondansetron 4 MG SoluTab SL PRN (10:00)
[2025-03-26] MEDS ORDERED: LORazepam 1 MG Tab PO ONE ×2 (11:45→13:10)
[2025-03-26 12:15] VITALS: BP 131/92
[2025-03-26 13:48] LABS: Source, Urine Clean Catch
[2025-03-26 13:55] LABS: Appearance, Urine Cloudy (Clear); Bilirubin, Urine Neg (Neg); Blood, Urine 3+ (Neg); Color, Urine Yellow (P-Yellow); Glucose Qualitative, Urine Neg (Neg); Ketones, Urine Neg (Neg); Leukocyte Esterase, Urine 1+ (Neg); Nitrite, Urine Neg (Neg); Protein, Urine 1+ (Neg); Urobilinogen, Urine 1+ (Normal); pH, Urine 6.5 (5.0-8.0)
[2025-03-26 14:08] LABS: Squamous Epithelial Cells Many /hpf (Few)
[2025-03-26 14:09] LABS: Bacteria Many /hpf; Yeast/Fungi Urine Rare /hpf
[2025-03-26 14:17] LABS: U Amphetamine Screen DETECTED; U Barbituate Screen Not Detected; U Benzodiazapine Screen DETECTED; U Buprenorphine Screen DETECTED; U Cannabinoids Screen Not Detected; U Cocaine Screen Not Detected; U Methadone Screen Not Detected; U Methamphetamine Screen DETECTED; U Opiates Screen Not Detected; U Oxycodone Screen Not Detected; U Phencyclidine Screen Not Detected
== END 2025-03-26 15:17 | disposition other institution (70) ==
LOC: ER 23:53 → EOR 23:54
PROVIDERS: Student in an Organized Health Care Education/Training Program; ADMIT Student in an Organized Health Care Education/Training Program
DX: Z03.89 Encounter for observation for other suspected diseases and conditions ruled out (principal); F11.90 Opioid use, unspecified, uncomplicated; J44.9 Chronic obstructive pulmonary disease, unspecified; G40.909 Epilepsy, unspecified, not intractable, without status epilepticus; F17.210 Nicotine dependence, cigarettes, uncomplicated; Z79.82 Long term (current) use of aspirin; Z79.899 Other long term (current) drug therapy
CPT/HCPCS: 70450; 70496; 70498; 72125; 80053; 80320; 81001; 84703; 85025; 87086; 99285-25; A9270; G0378; G0480; Q9967

== ENCOUNTER 2025-03-26 11:07 | Inpatient (IN) | payer OTHER ==
[~2025-03-26] VITALS: Ht 170.2 cm; Wt 67.7 kg
[2025-03-26 15:30] VITALS: BP 131/86
[2025-03-26 16:28] VITALS: BP 131/86
--- NOTE | 2025-03-26 18:02 | NUR ---
ADMISSION PT ADMITTED FROM ED FOR SUICIDE ATTEMPT BY HANGING. PT REPORTS THAT SHE SMOKES FENTANYL REGULARLY AND IS EXPERIENCING WITHDRAWAL SYMPTOMS. PT MEDICATED IN ED BEFORE COMING TO BHU. PT AGITATED AND NOT COOPERATIVE WITH ADMISSION ASSESSMENT. PT DECLINED TO SIGN ADMISSION PAPERS AND UNHAPPY THAT SHE IS HERE INVOLUNTARY. RN ORIENTED PT TO UNIT AND HER ROOM. PT CURRENTLY RESTING IN BED.
[2025-03-26] MEDS ORDERED: Haloperidol 5 MG Tab PO PRN (18:45)
[2025-03-26] MEDS ORDERED: HydrOXYzine Pamoate 50 MG Cap PO PRN (18:45)
[2025-03-26] MEDS ORDERED: Ibuprofen 600 MG Tab PO PRN (18:50)
[2025-03-26] MEDS ORDERED: Haloperidol Lactate Inj. 5 MG/ML Injection IM PRN (18:50)
[2025-03-26] MEDS ORDERED: LORazepam 2 MG Tab PO PRN (18:50)
[2025-03-26] MEDS ORDERED: Aluminum Hydroxide 320MG/5ML 473 ML PO PRN (18:50)
[2025-03-26] MEDS ORDERED: Acetaminophen 325 MG TABLET PO PRN (18:50)
[2025-03-26] MEDS ORDERED: Calcium Carbonate 500 MG Tab Chew PO PRN (18:50)
[2025-03-26] MEDS ORDERED: LORazepam 2 MG/ML 1ML Injection IM PRN (18:50)
[2025-03-26] MEDS ORDERED: OLANZapine ODT 10 MG Tab MM PRN (18:55)
[2025-03-26] MEDS ORDERED: Polyethylene Glycol 3350 17 gm PO PRN (18:55)
[2025-03-26] MEDS ORDERED: TraZODone HCl 50 MG Tab PO PRN (18:55)
[2025-03-26] MEDS ORDERED: DiphenhydrAMINE HCl 50 MG/ML 1ML Vial IM PRN (18:55)
[2025-03-26] MEDS ORDERED: Ondansetron 4 MG SoluTab MM PRN (18:55)
[2025-03-26] MEDS ORDERED: DiphenhydrAMINE HCl 50 MG Cap PO PRN (18:55)
[2025-03-26] MEDS ORDERED: Melatonin 3 MG Tab PO PRN (18:55)
[2025-03-26 20:53] VITALS: BP 116/49
[2025-03-26] MEDS ORDERED: Buprenorphine HCL/Naloxone HCL 8MG-2MG Tab SL SCH (21:00)
[2025-03-26] MEDS ORDERED: LORazepam 1 MG Tab PO ONE (21:15)
--- NOTE | 2025-03-26 22:42 | NUR ---
SHIFT UPDATE PT IN BED SLEEPING AT START OF SHIFT, AWAKES EASILY. DENIES ANY SI, HI, THOUGHTS OF SELF HARM OR HALLUCINATIONS. PT STATED SHE WAS TIRED. SHE HAD EVENING SNACK AND WAS COMPLIANT WITH MEDICATIONS. SHE RECEIVED PRN MELATONIN AND TRAZODONE. AT APPROXIMATELY 2039, PT NOTED TO HAVE MASS SCORE OF 4 AND RECEIVED PRN ZYPREXA. PT HAVING INCREASED WITHDRAWL SYMPTOMS, OPIOD WITHDRAWAL SCORE OF 15. DR. SCHERER NOTIFIED BY MARKETING REGIONAL CONSULTANT OF INCREASED WITHDRAWAL SYMPTOMS. RECEIVED PRN ORDER FOR ATIVAN 1MG PO X1, WHICH PT RECEIVED ALONG WITH VISTARIL FOR MASS SCORE OF 3. AT APPROXIMATELY 2229, PT REPORTED "IT'S NOT WORKING, I CAN'T SLEEP". ADDITIONAL DOSE OF ZYPREXA GIVEN. PT IS CURRENTLY IN SENSORY ROOM WITH HEADPHONES ON, APPEARS RESTLESS, FIDGETING AND AGITATED. Q15 MINUTE CHECKS TO CONTINUE PER PT SAFETY/PROTOCOL.
--- NOTE | 2025-03-26 23:29 | NUR ---
MASS SCORE OF 9 PT WITH INCREASED RESTLESSNESS, UP AND DOWN IN BED AND IN HALLWAY, PACING AT TIMES, TEARFUL, YELLS OUT WHILE IN ROOM AND THEN DOESN'T REMEMBER SAYING ANYTHING. HR 122, PULSE OX 97% AND TEMP 99.0. UNABLE TO OBTAIN BLOOD PRESSURE, PT WOULD NOT SIT STILL AND KEPT TAKING CUFF OFF. DISCUSSED MEDS THAT PT HAS ALREADY RECEIVED WITH TWISTING MACHINE OPERATOR, OK TO GIVE PO B52 FOR MASS SCORE OF 9. WILL CONTINUE TO MONITOR CLOSELY.
--- NOTE | 2025-03-27 04:06 | NUR ---
END OF SHIFT UPDATE PT HAS BEEN AWAKE MOST OF THE NIGHT. SHE HAS SLEPT LESS THAN 1 HOUR. WITHDRAWAL SYMPTOMS ARE IMPROVED AT THIS TIME. PT CURRENTLY ASSISTED BACK TO BED AFTER SHE WALKED DOWN THE HALLWAY WITH HER EYES CLOSED AT TIMES. UNSTEADY GAIT. PT REFUSED TO WEAR NON-SKID SOCKS. SHE STATES SHE IS SLEEPY. Q15 MINUTE CHECKS TO CONTINUE PER PT SAFETY.
[2025-03-27 08:17] VITALS: BP 110/66
[2025-03-27] MEDS ORDERED: Multivitamins 1 Tab PO SCH (09:00)
--- NOTE | 2025-03-27 17:00 | NUR ---
SHIFT SUMMARY PT WITHDRAWING FROM FENTANYL AND SLEPT FOR THE MAJORITY OF THE SHIFT. PT DID NOT SLEEP AT ALL THE NIGHT PRIOR AND SLEPT WELL TODAY. SHE AWAKENS BRIEFLY TO VOICE, BUT IS UNABLE TO ANSWER QUESTIONS DUE TO SEDATION. PT UNABLE TO ANSWER INTERVIEW QUESTIONS AT THIS TIME. SHE IS MONITORED VIA Q15 ROUNDING FOR SAFETY AND WELLNESS.
[2025-03-27 20:34] VITALS: BP 105/69
[2025-03-27] MEDS ORDERED: LevETIRAcetam 500 MG Tab PO SCH (21:00)
--- NOTE | 2025-03-27 23:16 | NUR ---
MID SHIFT SUMMARY FOR REPORT OFF: PATIENT UP FOR SNACK THIS EVENING. C/O WITHDRAWAL SYMPTOMS INCLUDING SWEATING, MILD TREMORS, GENERALIZED BODY ACHES. DENIES ANY SI/HI/AH/VH. STATES SHE JUST WANTS TO SLEEP AT THIS TIME. COOPERATIVE WITH CARE GIVEN AND ABLE TO PARTICIPATE IN CONVERSATIONS. CONTINUE 15 MIN CHECKS FOR SAFETY.
--- NOTE | 2025-03-28 04:22 | NUR ---
END OF SHIFT UPDATE I ASSUMED CARE OF PT AT 2345. NO ACUTE EVENTS. SHE HAS BEEN IN BED THROUGHOUT THE NIGHT. Q15 MINUTE CHECKS TO CONTINUE PER PT SAFETY.
[2025-03-28 06:45] LABS: Cholesterol 186 mg/dL (50-200); HDL Cholesterol 61 mg/dL (>39); LDL/HDL RATIO 1.8; Low Density Lipoprotein Chol 111 mg/dL (0-110); Triglycerides 69 mg/dL (30-140); Very Low Density Lipoprot Chol 14 mg/dL (6-28)
[2025-03-28 09:21] VITALS: BP 101/54
--- NOTE | 2025-03-28 13:24 | NUR ---
UPDATE PT ATTEMPTED TO FOLLOW HOSPITAL STAFF OUT OF BUILDING AND WHEN EXIT DOOR CLOSED PT WAS PULLING ON HANDLE. PT THEN STATED "I KNOW MY RIGHTS" "I'M GONNA [place]" HAS REPEATEDLY BEEN TALKING ABOUT WANTING TO LEAVE. MEDICATED PER EMAR MASS >7. PT IN ROOM RESTING QUIETLY AT THIS TIME.
--- NOTE | 2025-03-28 17:34 | NUR ---
SHIFT SUMMARY NO ACUTE EVENTS SINCE PREVIOUS NOTE. DENIES SI, HI, AVTH. HAS BEEN SLEEPING/RESTING QUIETLY SINCE PREVIOUS NOTE.
[2025-03-28 20:16] VITALS: BP 106/67
--- NOTE | 2025-03-29 04:08 | NUR ---
SHIFT SUMMARY NO ACUTE EVENTS. PT IN BED AT START OF SHIFT. SHE DENIES ANY SI, HI, THOUGHTS OF SELF HARM OR HALLUCINATIONS. REPORTS HER MOOD "CRAPPY". COWS SCORE OF 6. PT ENCOURAGED TO TAKE A SHOWER, BUT DECLINED. SHE HAD EVENING SNACK, WAS COMPLIANT WITH MEDICATIONS, RECEIVED PRN TRAZODONE AND MELATONIN AND WENT BACK TO BED AFTER SNACK. Q15 MINUTE CHECKS TO CONTINUE PER PT SAFETY.
[2025-03-29] MEDS ORDERED: Sertraline HCl 50 MG Tab PO SCH (09:00)
--- NOTE | 2025-03-29 16:34 | NUR ---
SHIFT SUMMARY: PT ALERT AND ORIENTED. DENIED SI, HI AND AVH. PT VERBALIZED FRUSTRATION R/T 5 DAY HOLD. PT IS AWARE OF THE HOLD PROCESS. PT WAS PRESENT FOR MEALS AND SHOWERED TODAY. MEDICATED WITH PRN FOR ANXIETY PER EMAR BY RUDDY PARSONS. PT REQUESTED MULTIPLE TIMES TO BE ABLE TO SMOKE. PT EDUCATED ON [facility] NONE SMOKING CAMPUS POLICE EACH TIME. PT WAS OFFERED NICOTINE GUM OR PATCH WHICH SHE DECLINED.
[2025-03-29 20:44] VITALS: BP 113/71
[2025-03-29] MEDS ORDERED: OLANZapine 5 MG Tab PO SCH (21:00)
--- NOTE | 2025-03-30 05:03 | NUR ---
SHIFT SUMMARY AT BEGINNING OF SHIFT PATIENT IN BED TEARFUL AND VERBALIZING THAT SHE IS WORRIED ABOUT LOOSING HER APARTMENT BECAUSE SHE NEEDS TO SIGN THE "YEARLY RECERT" SLIGHT TREMOR SEEN TO BOTH HAND, AND FIDGETING. MEDICATED WITH HYDROXYZINE FOR MASS 4. PATIENT DENIES SI, HI, OR AVH. COOPERATIVE WITH HS MEDICATIONS. AT 2129 PATIENT UP TO NURSES DESK C/O FEELING "SICK" AND "NEEDING SOMETHING FOR MY WITHDRAWAL" DENIES NAUSEA MASS AGAIN 4 MEDICATED WITH ZYPREXA PRN DOSE. PATIENT APPEARS TO BE SLEEPING WELL T/O NIGHT RESP EVEN AND UNLABORED.
--- NOTE | 2025-03-30 09:15 | NUR ---
SHIFT ASSESSMENT: AFTER MUCH PROMPTIMG PT DIDN'T RESPOND, SHE SLEPT THROUGH BREAKFAST. SHE FINALLY GOT UP AND TOOK HER MEDS AND THEN WENT BACK TO BED. SHE ASKED TO BE NOTIFIED OF SNACK TIME. SHE REPORTED HER MOOD , "TIRED." HER AFFECT WAS FLAT.
[2025-03-30] MEDS ORDERED: Nicotine Polacrilex 2 MG Gum PO PRN (17:10)
--- NOTE | 2025-03-30 17:21 | NUR ---
PT SHOWERED, REQUESTED NICOTINE GUM, SAT ON THE PATIO FOR SEVERAL MINUTES AND THEN WENT BACK TO BED. SHE HAS BEEN COOPERATIVE AND PLEASANT IN THE FEW TIMES SHE HAS INTERACTED WITH STAFF AND PT'S MISSY.
--- NOTE | 2025-03-30 19:02 | NUR ---
PT WAS GIVEN ZYPREXA 10MG FOR MASS OF 9. SHE BECAME UPSET WHEN SHE WAS DENIED ACCESS TO HER PHONE.
[2025-03-30 20:03] VITALS: BP 119/67
--- NOTE | 2025-03-31 04:41 | NUR ---
SHIFT SUMMARY: PATIENT WAS OUT IN THE [place] AT THE BEGINNING OF THE SHIFT. SHE STATED THAT SHE WAS FRUSTRATED BECAUSE "A HOLD IS THREE DAYS AND I'VE BEEN HERE MORE THAN THAT. I NEED TO GO HOME. MY HOUSE IS PROBABLY A CRACK HOUSE BY NOW. I'M WORRIED ABOUT ALL MY STUFF." SHE STATED, "I AM GOING TO TAKE YOU ALL TO COURT. I'M GOING TO [place] YOU." RN EXPLAINED THAT SHE CAN SPEAK TO THE DR IN THE MORNING. SHE VERBALIZED UNDERSTANDING THAT HER BEHAVIOR AND PARTICIPATION ARE BIG FACTORS IN HOW LONG SHE WILL STAY. SHE WAS THANKED FOR SPEAKING ABOUT HER CONCERNS IN A CIVILIZED MANNER. SHE PARTICIPATED IN SNACK TIME AT 2030, AND FILLED OUT HER WRAP UP GROUP PAPER. SHE WAS COMPLIANT WITH EVENING MEDICATIONS. SHE DENIED SI, HI, A/V HALLUCINATIONS AND THOUGHTS OF SELF HARMING. SHE HAD NO ISSUES OR CONCERNS OTHER THAN THE ONGOING ISSUE OF "I WANT TO GO HOME". SHE WENT TO BED AFTER MEDICATION ADMINISTRATION AND WAS NOTED TO BE RESTING QUIETLY WITH EYES CLOSED AND RESPIRATIONS CONFIRMED FOR THE REMAINDER OF THE SHIFT. CONTINUING TO MONITOR FOR SAFETY WITH Q15 MINUTE CHECKS.
[2025-03-31 07:57] VITALS: BP 101/72
--- NOTE | 2025-03-31 10:24 | NUR ---
GINO SHAFER [phone]
--- NOTE | 2025-03-31 17:17 | NUR ---
SHIFT SUMMARY: PT ALERT, ORIENTED AND COOPERATIVE WITH CARE. DENIES SI, HI AND AVH. IN THE AM PT WAS REQUESTING TO KNOW WHEN HER HOLD WAS UP. UPDATED HER ON HOLD DATE. PT WAS MEDICATED IN THE AFTERNOON FOR C/O ANXIETY WITH PRN PER EMAR. PT SPENT TIME RESTING IN HER ROOM, IN THE DAY ROOM AND ON THE PATIO. SHE WAS PRESENT FOR MEALS.
[2025-03-31 20:00] VITALS: BP 117/74
--- NOTE | 2025-04-01 04:16 | NUR ---
SHIFT SUMMARY: PATIENT STATED AT THE BEGINNING OF THE SHIFT THAT THE DOCTOR "TOLD ME I'M LEAVING TOMORROW". RN LOOKED AT THE DR NOTE AND HE DID STATE THAT SHE CAN LEAVE ON 04/01/25. THIS DR IS NOW OFF DUTY AND ANOTHER ON, AND HER HOLD APPEARS TO BE UP 04/02/25. PATIENT IS INSISTENT THAT IT IS 04/01/25, AND PLANS TO LEAVE. SHE WAS PLEASANT AND COOPERATIVE WITH CARES, A BIG CHANGE FOR HER. SHE DENIED SI, HI, A/V HALLUCINATIONS AND THOUGHTS OF SELF HARMING. SHE DENIED THAT SHE WILL GO BACK TO USING FENTANYL. "I JUST WANT THE CRACKHEADS OUT OF MY PLACE". SHE PARTICIPATED IN SNACK AND WRAP UP GROUP AT 2030 IN THE [place] ARE[place], AND WAS COMPLIANT WITH EVENING MEDICATIONS, INCLUDING REQUESTED PRNS. SHE WENT TO BED AFTER SNACK, AND WAS MOSTLY RESTING QUIETLY WITH EYES CLOSED AND RESPIRATIONS CONFIRMED. SHE WAS UP A FEW TIMES TO SEE THE TIME, AND DID ASK FOR HELP "GOING BACK TO SLEEP" DUE TO ANXIETY "06/02". SHE WAS GIVEN VISTARIL AT THAT TIME WITH GOOD EFFECT. CONTINUING TO MONITOR FOR SAFETY WITH Q15 MINUTE CHECKS.
[2025-04-01 08:36] VITALS: BP 119/75
--- NOTE | 2025-04-01 11:46 | NUR ---
IMPORTANT MENTAL HEALTH HOLD APPOINTMENT INFORMATION Patient is scheduled to meet with [employer] crisis team on April 02, 2025 at 1400 // [address], [place] [address] // [phone] GEORGE entered appointment information into patient's chart
[2025-04-01] MEDS ORDERED: LEVE500 PO (13:32)
[2025-04-01] MEDS ORDERED: BUPRENORPHIN-N1 EAC1 SL (13:32)
[2025-04-01] MEDS ORDERED: SERT25 PO (13:33)
--- NOTE | 2025-04-01 13:59 | NUR ---
SHIFT SUMMARY PT AxOx4. PLEASANT AND COOPERATIVE WITH CARE. PT DISCHARGING TODAY TO HOME. SHE DENIES SI/HI AND AVTH. REPORTS FEELING "OK" THIS AM. PT HAS BEEN FOLLOWING TREATMENT PLAN INCLUDING TAKING MEDICATIONS PRESCRIBED, ATTENDING [facility] THERAPY GROUPS AND MINGLING APPROPRIATELY WITH STAFF/PEERS. DISCHARGE INSTRUCTIONS DISCUSSED INCLUDING DC MED LIST, FOLLOW UP APPOINTMENT INFO, PATIENT EDUCATION ON DIAGNOSIS AND SAFE SUBSTANCE CESSATION. PT VERBALIZED UNDERSTANDING. BELONGINGS WERE RETURNED AND PT WAS SAFELY ESCORTED OUT TO HER RIDE AT APPROX 1351.
== END 2025-04-01 13:52 | disposition home or self-care (01) | DRG 882 ==
LOC: BHU 11:07
PROVIDERS: ADMIT Psychiatry & Neurology Psychiatry
DX: F43.25 Adjustment disorder with mixed disturbance of emotions and conduct (principal); F11.23 Opioid dependence with withdrawal; F32.A Depression, unspecified; J44.9 Chronic obstructive pulmonary disease, unspecified; R40.0 Somnolence; G40.909 Epilepsy, unspecified, not intractable, without status epilepticus; Z79.1 Long term (current) use of non-steroidal anti-inflammatories (NSAID); Z79.899 Other long term (current) drug therapy
CPT/HCPCS: 36415; 80061; 83036; A9270

== ENCOUNTER 2025-07-21 23:35 | Emergency (ER) | payer OTHER ==
[~2025-07-21] VITALS: Ht 170.2 cm; Wt 61.2 kg
[~2025-07-21 23:35] MED LIST changes: +BUPRENORPHIN-N1 EAC1 SL; +SERT25 PO
[2025-07-22] MEDS ORDERED: NS 1,000 ML IV SCH (00:15)
[2025-07-22] MEDS ORDERED: Ondansetron HCl 2 MG / ML 2ML Vial IV ONE (00:15)
[2025-07-22] MEDS ORDERED: Prochlorperazine Edisylate 10 mg Vial IV ONE (00:20)
[2025-07-22] MEDS ORDERED: DiphenhydrAMINE HCl 50 MG/ML 1ML Vial IV ONE (00:20)
[2025-07-22 00:32] LABS: BASOPHILS ABSOLUTE AUTO 0.03 K/mm3 (0.00-0.23); BASOPHILS PERCENT AUTO 0 % (0-2); EOSINOPHILS ABSOLUTE AUTO 0.11 K/mm3 (0.00-0.68); EOSINOPHILS PERCENT AUTO 1 % (0-6); Hematocrit 41.6 % (33.0-51.0); Hemoglobin 14.3 g/dL (11.5-16.0); IMMATURE GRAN ABSOLUTE AUTO 0.03 K/mm3 (0.00-0.10); IMMATURE GRAN PERCENT AUTO 0 % (0-1); LYMPHOCYTES ABSOLUTE AUTO 0.72 K/mm3 (0.84-5.20); LYMPHOCYTES PERCENT AUTO 8 % (21-46); MONOCYTES ABSOLUTE AUTO 1.12 K/mm3 (0.16-1.47); MONOCYTES PERCENT AUTO 12 % (4-13); Mean Corpuscular HGB Conc 34.4 g/dL (31.5-36.5); Mean Corpuscular Volume 87 fL (80-100); NEUTROPHILS ABSOLUTE AUTO 7.09 K/mm3 (1.96-9.15); NEUTROPHILS PERCENT AUTO 78 % (41-73); NRBC ABSOLUTE 0.00 K/mm3 (0.00-0.02); NRBC Auto 0.0 /100 WBC (0.0-0.2); Platelet Count 199 K/mm3 (150-400); RDW Coefficient Variation 11.6 % (11.7-14.2); RDW Standard Deviation 37.3 fL (35.1-46.3)
[2025-07-22 00:53] LABS: Alanine Aminotransfer (ALT/SGP 22.0 U/L (12-78); Albumin, Blood 3.9 g/dL (3.4-5.0); Albumin/Globulin Ratio 1.1 (0.8-1.8); Anion Gap 7.0 mmol/L (3-11); Aspartate Aminotrans (AST/SGOT 18.0 U/L (12-37); Bilirubin, Total 0.3 mg/dL (0.1-1.0); Blood Urea Nitrogen 10.0 mg/dL (8-24); CO2, Blood 26.0 mmol/L (21-32); Calcium, Blood 8.7 mg/dL (8.5-10.1); Chloride, Blood 107.0 mmol/L (98-108); Creatinine, Blood 0.7 mg/dL (0.40-1.00); Globulin, Blood 3.7 g/dL (2.2-4.0); Glucose, Blood 101.0 mg/dL (70-99); Magnesium, Blood 2.1 mg/dL (1.6-2.4); Potassium, Blood 4.1 mmol/L (3.5-5.5); Sodium, Blood 136.0 mmol/L (136-145); Total Protein, Blood 7.6 g/dL (6.4-8.2)
[2025-07-22] MEDS ORDERED: ONDA4 PO (01:52)
[2025-07-22 02:00] VITALS: BP 109/75
== END 2025-07-22 02:02 | disposition home or self-care (01) ==
LOC: ER 23:35
PROVIDERS: Emergency Medicine
DX: R11.2 Nausea with vomiting, unspecified (principal); F17.210 Nicotine dependence, cigarettes, uncomplicated; J44.9 Chronic obstructive pulmonary disease, unspecified; Z79.899 Other long term (current) drug therapy
CPT/HCPCS: 80053; 83690; 83735; 84703; 85025; 93005; 93010; 96361; 96374; 96375; 99284-25; J0780; J1200; J1953; J2405; J7030